=== PATIENT | female | born 1990 | race Caucasian/White ===

== ENCOUNTER 2018-04-29 03:00 | Emergency (ER) | payer BC ==
[2018-04-29 03:06] VITALS: BP 145/100; PULSE 97; TEMP 97.5; BMI 30.8
--- NOTE | 2018-04-29 03:10 | PDOC ---
History of Present Illness - General Chief Complaint: Pain Stated Complaint: FALL History Source: Patient - History of Present Illness Initial Comments: 04/29/18 03:14 fell on R wrist Timing/Duration: 1-3 hours Severity: mild Modifying Factors: improves with: other (has not tried anything) Associated Symptoms: denies: chest pain, fever/chills, nausea/vomiting Past History - Past Medical History Allergies/Adverse Reactions: Allergies Allergy/AdvReac Type Severity Reaction Status Date / Time No Known Allergies Allergy Verified 04/29/18 03:01 Home Medications: Ambulatory Orders NK [No Known Home Medication] 04/29/18 COPD: No Other medical history: Pt denies - Suicide/Smoking/Psychosocial Hx Smoking History: Never smoked Have you smoked in the past 12 months: No Information on smoking cessation initiated: No Hx Alcohol Use: No Drug/Substance Use Hx: No Review of Systems - Review of Systems All Other Systems: Reviewed and Negative *Physical Exam - Vital Signs Last Vital Signs Temp Pulse Resp BP Pulse Ox 97.5 F L 97 H 18 145/100 98 04/29/18 03:04 04/29/18 03:04 04/29/18 03:04 04/29/18 03:04 04/29/18 03:04 - Physical Exam General Appearance: Yes: Nourished, Appropriately Dressed HEENT: positive: Normal Voice Respiratory/Chest: positive: Lungs Clear Cardiovascular: positive: Regular Rate Musculoskeletal: positive: Other (R wrist and hand: No bony tenderness; hematoma within soft tissue) Moderate Sedation - Procedure Monitoring Vital Signs: Procedure Monitoring Vital Signs Temperature 97.5 F L 04/29/18 03:04 Pulse Rate 97 H 04/29/18 03:04 Respiratory Rate 18 04/29/18 03:04 Blood Pressure 145/100 04/29/18 03:04 O2 Sat by Pulse Oximetry (%) 98 04/29/18 03:04 Medical Decision Making - Medical Decision Making 04/29/18 03:16 bruise analgesia isabel wrap *DC/Admit/Observation/Transfer Diagnosis at time of Disposition: Bruise - Discharge Dispostion Disposition: HOME - Referrals - Patient Instructions Printed Discharge Instructions: DI for Hematoma (Bruise) - Post Discharge Activity
== END 2018-04-29 03:40 | disposition home or self-care (01) ==
LOC: FER 03:00
DX: S60.221A Contusion of right hand, initial encounter (principal); W18.39XA Other fall on same level, initial encounter; Y93.89 Activity, other specified; Y92.89 Other specified places as the place of occurrence of the external cause
CPT/HCPCS: 99282-25